=== PATIENT | male | born 1985 | race Two or more races ===

== ENCOUNTER 2016-04-04 19:19 | Emergency (ER) | payer OTHER ==
[2016-04-04 19:29] VITALS: RESP 17
[2016-04-04] MEDS ORDERED: HYDROCODONE/APAP 5/325 TAB PO ONE (21:27)
[2016-04-04] MEDS ORDERED: IBUPROFEN 600 MG TAB PO ONE (22:51)
--- NOTE | 2016-04-04 22:53 | DX ---
Left Knee, 5 Views Clinical Indications: Pain following trauma. Findings: A fracture is not identified. The bone alignment is normal. No radiopaque foreign body is seen. A joint effusion is identified. Impression: Negative for fracture. A joint effusion could reflect internal derangement and if symptom s persist, MRI could be considered for further assessment.
--- NOTE | 2016-04-04 22:57 | EDPHY ---
H & P Time Seen by Provider: 04/04/16 22:25 HPI/ROS: CHIEF COMPLAINT: left knee pain HISTORY OF PRESENT ILLNESS: 30-year-old male presents emergency department complaining of left knee pain and swelling after he slipped and twisted his left knee on the ice while walking today. Patient reports he feels like he hyperextended his knee and twisted it, he then fell, denies contacting the ground with his left knee, patient reports as pain and swelling, difficulty with flexion and extension. He denies previous injury to this knee, he was able to hobble on this knee after the injury, denies feeling a pop. The patient denies numbness or tingling in his leg. Smoking Status: Never smoked Physical Exam: GEN: Awake, alert, oriented, no acute distress RESP: nl resp effort MSK: Left knee lacks 10 degrees of extension, flexion to 80 degrees, moderate effusion, medial joint line tenderness, no lateral joint line tenderness, negative valgus and varus stress, unable to obtain anterior drawer and Chinedu' s due to pain and patient fighting exam, 2+ pedal pulses, sensation intact to light touch SKIN: No break in skin Constitutional: Initial Vital Signs Temperature (C) 36.8 C 04/04/16 19:25 Heart Rate 102 H 04/04/16 19:25 Respiratory Rate 17 04/04/16 19:25 Blood Pressure 143/93 H 04/04/16 19:25 O2 Sat (%) 96 04/04/16 19:25 O2 Delivery Mode Room Air Allergies/Adverse Reactions: No Known Allergies Allergy (Unverified 04/04/16 19:25) Home Medications: Medication Instructions Recorded Hydrocodone/APAP 5/325 [Pioche 1 tab PO Q4H PRN #20 tab 04/04/16 5/325] MDM/Departure - MDM Diagnostics: Left knee x-ray independently reviewed by me Addendum Addendum: On the patellar view in one of the oblique views there is a possible small avulsion on the lateral side of the distal femur. A preliminary report was called to Marisela Roach NP at 2300 hours in the Emergency Department. Findings: A fracture is not identified. The bone alignment is normal. No radiopaque foreign body is seen. A joint effusion is identified. Impression: Negative for fracture. A joint effusion could reflect internal derangement and if symptoms persist, MRI could be considered for further assessment. Dictated By: Eliud Hays MD Medications Given: Discontinued Medications Acetaminophen/Hydrocodone Bitart (Pioche 5/325) 1 - 2 tab PO EDNOW ONE Stop: 04/04/16 21:28 Last Admin: 04/04/16 21:30 Dose: 1 tab - Depart Disposition: Home, Routine, Self-Care Clinical Impression: Sprain of left knee Qualifiers: Encounter type: initial encounter Involved ligament of knee: medial collateral ligament Qualifier Code: (S83.412A) Sprain of medial collateral ligament of left knee, initial encounter Condition: Good Instructions: Knee Sprain (ED) Additional Instructions: Rest, ice, elevate, take 600 mg of ibuprofen every 8 hours with food for 3-5 days, take Pioche as needed for severe pain. Call the orthopedist 1st thing tomorrow morning to schedule an appointment to be seen in the next week. Use crutches for ambulation. Return to the emergency department for any numbness or tingling in your leg, pain that is not controlled, other questions or concerns. Prescriptions: Hydrocodone/APAP 5/325 [Pioche 5/325] 1 tab PO Q4H PRN #20 tab PRN Reason: Pain, Moderate Referrals: Randal Hensley MD [Medical Doctor] - As per Instructions (Orthopedist on-call)
[2016-04-04] MEDS ORDERED: HYDROCOD/APAP 5/325 PREPACK#6 BTL TAKEHOME ONE (23:11)
[2016-04-04 23:44] VITALS: BP 121/77; PULSE 80; TEMP 98.6; O2SAT 97
== END 2016-04-04 23:44 | disposition home or self-care (01) ==
DX: S83.412A Sprain of medial collateral ligament of left knee, initial encounter (principal); W18.49XA Other slipping, tripping and stumbling without falling, initial encounter; Y92.89 Other specified places as the place of occurrence of the external cause; Y93.01 Activity, walking, marching and hiking
CPT/HCPCS: L1830